=== PATIENT | male | born 1960 | race Caucasian/White ===

== ENCOUNTER 2024-07-25 14:11 | Emergency (ER) | payer OTHER ==
[2024-07-25 14:36] LABS: #Basophils 0.1 thou/uL (0.0-0.2); #Eosinophils 0.3 thou/uL (0.0-0.7); #Lymphocytes 1.8 thou/uL (1.20-3.40); #Monocytes 0.8 thou/uL (0.11-0.59); #Neutrophils 8.3 thou/uL (1.40-6.50); %Basophils 0.7 % (0.0-1.0); %Eosinophils 2.5 % (0.0-10.0); %Lymphocytes 15.9 % (21.0-51.0); %Neutrophils 73.9 % (42.0-75.0); Hematocrit 48.2 % (42.0-52.0); Mean Corpuscular HGB CONC 33.3 g/dL (32.0-36.0); Mean Corpuscular Hemoglobin 31.1 pg (27.0-31.0); Mean Corpuscular Volume 93.5 fl (78.0-98.0); Mean Platelet Volume 9.5 fL (7.4-10.4); Platelet Count 221 10x3/uL (130-400); RBC Distribution Width 12.7 % (11.5-14.5); Red Blood Cell (RBC) Count 5.15 mill/uL (4.70-6.10); White Blood Cell (WBC) Count 11.2 10x3/uL (4.8-10.8)
[2024-07-25 14:49] LABS: PTT 28.2 sec (22.9-36.1); Prothrombin Time 13.5 sec (12.0-14.7)
[2024-07-25] MEDS ORDERED: dilTIAZem 25 MG/5 ML VIAL ONE (14:50)
[2024-07-25 14:52] LABS: D-Dimer Test 0.58 mcg/mL (0.27-0.43)
[2024-07-25 14:55] LABS: ALT (SGPT) 19 U/L (8-55); AST (SGOT) 18 U/L (5-34); Albumin 4.2 g/dL (3.4-4.8); Alkaline Phosphatase 130 U/L (40-110); Anion Gap 18 mmol/L (10-20); BUN (Urea Nitrogen) 20 mg/dL (8.4-25.7); Bilirubin, Total 1.3 mg/dL (0.2-1.2); CK (CPK) 115 U/L (30-200); Calc. Creatinine Clearance 0 mL/min (70-130); Calcium 9.8 mg/dL (7.8-10.44); Carbon Dioxide 23 mmol/L (23-31); Chloride 107 mmol/L (98-107); Estimated GFR 49; Globulin 3.8 g/dL (2.4-3.5); Glucose 113 mg/dL (80-115); Sodium 144 mmol/L (136-145)
[2024-07-25 14:56] LABS: Acetaminophen Less than 10 mcg/mL (Less than 10); Alcohol Less than 10.0 mg/dL (Less than 10); Lipase 24 U/L (8-78); Salicylate Less than 8.0 mg/dL (Less than 8.0); Troponin I 0.063 ng/mL (< 0.028)
[2024-07-25] MEDS ORDERED: Iopamidol 370 76% 100 ML VIAL ONE (15:16)
[2024-07-25] MEDS ORDERED: Lidocaine 1% PF 5 ML VIAL ONE (16:45)
== END 2024-07-25 16:34 | disposition home or self-care (01) ==
LOC: BURERS 14:11
DX: R55 Syncope and collapse (principal); I48.91 Unspecified atrial fibrillation; R91.1 Solitary pulmonary nodule; R74.8 Abnormal levels of other serum enzymes; I11.0 Hypertensive heart disease with heart failure; I50.9 Heart failure, unspecified
CPT/HCPCS: 70450; 71045; 71275; 74177; 80053; 80307; 82550; 83605; 83690; 84484; 85025; 85379; 85610; 85730; 93005; 96361; 96374; Q9967